=== PATIENT | male | born 1985 | race Caucasian/White ===

== ENCOUNTER 2023-03-23 09:43 | Emergency (ER) | payer MEDICAID, OTHER ==
[2023-03-23] MEDS ORDERED: XYLOCAINE 1% HCL 20 ML MDV ONE ×2 (09:59→11:02)
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
[2023-03-23 10:55] VITALS: TEMP 97.6
[2023-03-23 10:59] LABS: Absolute Neutrophil Ct (ANC) 5.21 x10^3/uL (1.4-6.9); BASOPHIL % 0.7 % (0.0-0.4); Basophil (Absolute #) 0.05 x10^3/uL (0-0.4); Eosinophil % 1.3 % (0.00-5.0); Eosinophil (Absolute #) 0.09 x10^3/uL (0-0.5); Hemoglobin 14.5 g/dL (12.5-18.0); IMMATURE GRAN # 0.02 x10^3u/L (0.00-0.03); IMMATURE GRAN % 0.3 % (0.00-0.4); Lymphocytes % 18.4 % (24.0-44.0); Mean Cell Volume 101.1 fL (78-100); Mean Corpuscular Hemoglobin 32.6 pg (26-32); Mean Corpuscular Hgb Concent. 32.2 g/dL (32-36); Monocytes % 5.7 % (0.0-12.0); Neutrophil % 73.6 % (36.0-66.0); Platelet Count 214 x10^3/uL (150-450); Red Blood Count 4.45 x10^6/uL (4.1-5.6); Red Cell Distribution Width 12.3 % (11.5-14.0); White Blood Count 7.1 x10^3/uL (4.0-10.5)
[2023-03-23] MEDS ORDERED: BACIGUENT PACKET ONE (11:02)
[2023-03-23] MEDS ORDERED: Sodium Chloride 0.9% 1000 ML 1,000 ML ONE (11:02)
[2023-03-23] MEDS ORDERED: Zofran 4 MG/2 ML VIAL ONE (11:02)
[2023-03-23] MEDS: Sodium Chloride 0.9% 1000 ML 1,000 ML IV STA (11:12)
[2023-03-23 11:14] LABS: ACETAMINOPHEN < 10 ug/ml (10-30); ALBUMIN 4.4 g/dL (3.5-5.0); ALKALINE PHOSPHATASE 56 U/L (38-126); ANION GAP 13.1 MEQ/L (5-15); BLOOD UREA NITROGEN 16 mg/dL (9-20); CHLORIDE 105 mmol/L (98-107); Calcium 9.2 mg/dL (8.4-10.2); Carbon Dioxide 23 mmol/L (22-30); Creatinine 1 0.85 mg/dL (0.66-1.25); EST GLOMERULAR FILTRATION RATE 114.1 ML/MIN; ETHYL ALCOHOL 90 mg/dL (0-10); Glucose 64 mg/dL (74-106); Potassium 3.3 mmol/L (3.5-5.1); SALICYLATE < 1.0 mg/dL (2-20); SGOT/AST 29 U/L (17-59); SGPT/ALT 25 U/L (0-50); SODIUM 138 mmol/L (137-145)
[2023-03-23] MEDS: XYLOCAINE 1% HCL 20 ML MDV IJ ONE (11:16)
[2023-03-23] MEDS: BACIGUENT PACKET TP ONE (11:16)
[2023-03-23] MEDS: Zofran 4 MG/2 ML VIAL IV ONE (11:18)
[2023-03-23] MEDS ORDERED: Adacel Vial IM ONE (11:23)
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
[2023-03-23] MEDS: Adacel Vial IM ONE (11:35)
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
[2023-03-23 11:42] VITALS: RESP 18
[2023-03-23 12:07] LABS: INFLUENZA A NEGATIVE (NEGATIVE); INFLUENZA B NEGATIVE (NEGATIVE); RESPIRATORY SYNCTIAL VIRUS NEGATIVE (NEGATIVE); SARS-CoV-2 Xpert Express NEGATIVE (NEGATIVE)
[2023-03-23 18:23] LABS: Barbiturate,Urine NEGATIVE (NEGATIVE); Benzodiazepine,Urine NEGATIVE (NEGATIVE); Cocaine,Urine NEGATIVE (NEGATIVE); Methadone,Urine NEGATIVE (NEGATIVE); Opiate,Urine POSITIVE (NEGATIVE); PCP,Urine NEGATIVE (NEGATIVE); THC,Urine POSITIVE (NEGATIVE)
[2023-03-23 18:54] LABS: Bacteria None Seen /HPF (None Seen); Epithelial Cells None Seen /HPF (None Seen); Hyaline Casts NONE SEEN /LPF (0-2); RBC 0-2 /HPF (0-5); WBC 0-2 /HPF (0-5)
[2023-03-23 18:57] LABS: Amphetamine,Urine POSITIVE (NEGATIVE)
[2023-03-23 18:59] LABS: Appearance Clear (Clear); Specific Gravity 1.025 (1.005-1.030)
[2023-03-23 19:00] LABS: ADD URINE CULTURE? NO (NO); Bilirubin Negative (Negative); Blood Negative (Negative); Glucose, Urine Negative (Negative); Ketones Trace (Negative); Leukocyte Esterase Negative (Negative); Nitrite Negative (Negative); Protein,Urine Dip Trace (Negative)
[2023-03-23 19:23] VITALS: BP 121/84; PULSE 72; O2SAT 96
== END 2023-03-23 21:54 ==
LOC: ED 09:43
DX: R45.851 Suicidal ideations (principal); S01.81XA Laceration without foreign body of other part of head, initial encounter; V48.5XXA Car driver injured in noncollision transport accident in traffic accident, initial encounter
CPT/HCPCS: 0241U; 12014; 36415; 70450; 70486; 72125; 80053; 80143; 80179; 80307; 81001; 82077; 85025; 90471; 93005; 93041; 96374; 99285; 90715; J2405; A9270-GY